=== PATIENT | female | born 2000 | race Caucasian/White ===

== ENCOUNTER 2024-07-27 01:39 | Emergency (ER) | payer BC ==
[~2024-07-27] VITALS: Ht 12.7 cm; Wt 69.6 kg
[2024-07-27 01:40] VITALS: BP 134/88; PULSE 88; RESP 16; O2SAT 99
[2024-07-27] MEDS: proparacaine 0.5% ophthalmic drops 15ml RIGHTEYE ONE (03:56)
[2024-07-27] MEDS ORDERED: OLOP5DRO21 OP (04:18)
[2024-07-27] MEDS: diphenhydrAMINE 25mg capsule PO ONE (04:23)
[2024-07-27] MEDS: fluorometholone 0.1% ophthalmic suspension 5ml bottle RIGHTEYE ONE (04:24)
[2024-07-27 04:29] VITALS: TEMP 98.6
== END 2024-07-27 04:32 | disposition home or self-care (01) ==
LOC: ER 01:40
DX: H10.11 Acute atopic conjunctivitis, right eye (principal); G89.29 Other chronic pain; F12.90 Cannabis use, unspecified, uncomplicated; Z79.899 Other long term (current) drug therapy
CPT/HCPCS: 99284; Q0163